=== PATIENT | male | born 1960 | race Caucasian/White ===

== ENCOUNTER 2020-04-07 11:27 | Emergency (ER) | payer SELFPAY ==
[2020-04-07 11:28] VITALS: BP 178/112; PULSE 89; RESP 18; TEMP 36.1; O2SAT 100; BMI 28.2
[2020-04-07 11:35] VITALS: BP 217/117; PULSE 90; RESP 13; O2SAT 99
[2020-04-07 11:46] LABS: Bedside Glucose 92 mg/dL (70-110)
--- NOTE | 2020-04-07 12:39 | CT_ITS ---
HISTORY: FACIAL NUMBNESS ADDITIONAL HISTORY: None provided. COMPARISON: None EXAMINATION/TECHNIQUE: CT Head or Brain W/O Contrast Injection. Axial, coronal and sagittal images. Number of images including paperwork: 238. A radiation dose optimization technique was used for this scan. FINDINGS: BRAIN: No acute hemorrhage or mass. No definite acute infarct; MRI more sensitive. White matter hypodensity is nonspecific but most commonly seen with chronic ischemic changes. Generalized atrophy. VENTRICULAR SYSTEM: No hydrocephalus. PARANASAL SINUSES AND MASTOIDS: No air-fluid level in the imaged extent. ORBITS: Unremarkable imaged extent. SKELETON AND SOFT TISSUES: Calvarium intact. ASPECTS score: Not applicable. CT/Brain/Head without Contrast IMPRESSION: No acute intracranial abnormality. Chronic involutional and white matter changes. Individualized dose optimization techniques were used for this CT. at 1336 Reported and signed by: Migdalia Pearson MD Electronically Signed: Migdalia Pearson MD at 13:36 EDT Tel , Service support ,
--- NOTE | 2020-04-07 12:39 | EKG12_ITS ---
Test Reason : Blood Pressure : / mmHG Vent. Rate : 066 BPM Atrial Rate : 066 BPM P-R Int : 142 ms QRS Dur : 092 ms QT Int : 404 ms P-R-T Axes : 052 020 047 degrees QTc Int : 423 ms Normal sinus rhythm Normal ECG Confirmed by DAMIAN GLEZ, CHET ([id number]), editor department BREANNA REYNA ([id number]) on 04/18/2020 9:32:08 A M Referred By: Confirmed By:MARII SALGADO MD
--- NOTE | 2020-04-07 12:51 | ED.DCSUM_ITS ---
History of Present Illness Chief Complaint: Neuro S/Sx Informant: Patient Onset: Weeks Context: Gradual Onset Timing: Continuous Narrative: Patient is a 59-year-old male with history of tobacco abuse but does not see a [facility] doctor regularly presenting with facial numbness as well as chest tightness. Patient states about 2 weeks ago he developed a headache and then had numb sensation from his left cheek up to his left forehead. He denies any associated vision changes. He does feel he has some slight swelling over his left lutheran. It then progressed a couple days ago to include the right upper side of his face. He states it seems at the whole top of his face from the ups of his numb. He also notes he has had some tingling and paresthesias in his left hand for the past 2 weeks. He states his legs feel normal. He notes also for the past couple weeks has had some tightness in his chest and neck which is been constant. He states that he is a smoker and has a chronic cough productive of sputum but this is unchanged from his baseline. He does note for the past year he has had some increased dyspnea on exertion especially [place] it. Patient states his face feels slightly flushed. He denies any vision changes. Denies any fever or chills. He does not think he has had any recent tick bites but cannot be sure given [place] the [place] a [place]. He denies any GI or symptoms. He notes he does have chronic back pain for which he takes 8 ibuprofen a day for. He does not have a primary care doctor. Dates he came in today because his sister was worried he might of had a stroke. He notes his father has a history of aneurysm and stroke. Past Medical History - Allergies and Home Meds Allergies/Adverse Reactions: Allergies onion Allergy (Verified 04/07/20 11:31) Other Penicillins [PCN] Allergy (Verified 04/07/20 11:31) Shortness of breath Primary Care Physician: [facility] [NON-STAFF] - Past Medical History: None Surgical History: noncontributory Lives: With Family Smoking Status: Current every day smoker Review of Systems General: Denies: Chills, Fever, Malaise, Sweats Eyes: Denies: Visual changes - bilaterally, Diplopia ENT: Denies: Bilateral ear pain, Rhinorrhea, Sore throat Cardiovascular: Reports: - - chest tightness . Denies: Chest pain, Palpitations Respiratory: Reports: Dyspnea, Cough, Sputum. Denies: Dyspnea on exertion Gastrointestinal: Denies: Abdominal pain, Nausea, Vomiting, Diarrhea, Melena, Hematochezia Genitourinary: Denies: Dysuria, Hematuria, Frequency Musculoskeletal: Denies: Back pain, Extremity Pain Skin: Denies: Rash, Wounds Neurological: Reports: Parasthesia - face, left arm . Denies: Headache, Weakness, Numbness Physical Exam Vital Signs/Narrative: Vital Signs Temp Pulse Resp BP Pulse Ox 04/07/20 11:28 97.0 F L 89 18 178/112 H 100 Inital Vital Signs reviewed: Yes General: Well nourished, Well developed, No Acute Distress Head: Normocephalic, Atraumatic Eyes: Perrl, EOMI ENT: Moist mucous membranes, No rhinorrhea, TM's clear, - - There is no tenderness to palpation over the temples. Neck: Supple, Nontender, No lymphadenopathy, No JVD Cardiovascular: Regular rate, Regular rhythm, No murmurs Respiratory: No distress, CTA bilaterally, Chest nontender. Negative for: Wheezing, Diminished, Decreased Air Movement Abdomen: Soft, Nontender, Nondistended, Normal bowel sounds Back: Nontender, Normal Inspection Extremities: Nontender, No edema Skin: Normal color, No rash Neurological: Alert, Oriented x3, Cranial nerves II-XII grossly intact, Normal Strength, Normal Sensation, Normal Gait. Negative for: Parasthesia, Weakness, Left side facial droop, Right side facial droop Psychological: Normal affect, Normal Mood Diagnostic/Tx/Re-eval Chest X-Ray - ED: 1 View, Read by ED Physician, Read by Radiologist, No Acute Disease Clinical Impression(s) from Imaging Studies Brain CT 04/07/20 12:39 IMPRESSION: No acute intracranial abnormality. Chronic involutional and white matter changes. Individualized dose optimization techniques were used for this CT. at 1336 Reported and signed by: Migdalia Pearson MD Electronically Signed: Migdalia Pearson MD at 13:36 EDT Tel , Service support , Chest X-Ray 04/07/20 13:00 IMPRESSION: No acute cardiopulmonary abnormality. at 1338 Reported and signed by: Migdalia Pearson MD Electronically Signed: Migdalia Pearson MD at 13:38 EDT Tel , Service support , Laboratory Data 04/07/20 04/07/20 04/07/20 11:40 12:36 12:36 WBC 4.9 RBC 4.78 Hgb 15.3 Hct 44.9 MCV 93.9 MCH 32.0 MCHC 34.1 RDW Std Deviation 44.8 H RDW Coeff of Marc 13.0 Plt Count 170 MPV 9.3 Immature Gran % (Auto) 0.400 Neut % (Auto) 59.9 Lymph % (Auto) 28.2 [place] % (Auto) 8.0 Eos % (Auto) 3.3 Baso % (Auto) 0.2 Absolute Neuts (auto) 2.9 Absolute Lymphs (auto) 1.38 Nucleated RBC % 0 ESR 12 PT 13.3 INR 1.1 Sodium Potassium Chloride Carbon Dioxide Anion Gap BUN Creatinine Estim Creat Clear Calc Est GFR (MDRD) Af Amer Est GFR (MDRD) Non-Af BUN/Creatinine Ratio Glucose Calcium Troponin I C-React Prot Ext Range B-Natriuretic Peptide POC Glucose 92 04/07/20 04/07/20 04/07/20 12:36 12:36 15:37 WBC RBC Hgb Hct MCV MCH MCHC RDW Std Deviation RDW Coeff of Marc Plt Count MPV Immature Gran % (Auto) Neut % (Auto) Lymph % (Auto) [place] % (Auto) Eos % (Auto) Baso % (Auto) Absolute Neuts (auto) Absolute Lymphs (auto) Nucleated RBC % ESR PT INR Sodium 138 Potassium 4.0 Chloride 109 H Carbon Dioxide 26.0 Anion Gap 3 L BUN 16 Creatinine 1.07 Estim Creat Clear Calc 82.97 Est GFR (MDRD) Af Amer 90 Est GFR (MDRD) Non-Af 75 BUN/Creatinine Ratio 15.0 Glucose 83 Calcium 8.6 Troponin I 0.074 H 0.078 H C-React Prot Ext Range < 2.90 B-Natriuretic Peptide 39.3 POC Glucose - Rhythm Strip Rhythm Strip: Sinus Rhythm Rate: 66 Ectopy: None - EKG Initial EKG Interpretation: Sinus Rhythm, - - Mehran rhythm at a rate of 66 Normal axis Normal intervals Normal ST segments Compared to prior EKG on 01/02/2015, no acute changes - Medical Decision Making Patient is evaluated for headache that been on for the past 2 weeks associated facial numbness and chest tightness. Patient does not see a doctor regularly does smoke cigarettes. On exam patient is well-appearing. He said no significant change in his symptoms today deal he came in because his sister insisted. Patient denies any focal neurologic deficits and while he does have paresthesias his sensation is intact to light touch. His NIH is 0. He is not have a facial droop. Because he is having some pain and swelling of his left lutheran I did add on a CRP and ESR for concern of temporal arteritis. These are normal. Head CT does not show any acute process. Given his shortness of breath and chest tightness I did check a troponin as well as an EKG. EKG does not show any acute ischemic changes however his troponin is elevated at 0.074. I did recommend admission to the patient however he states he cannot afford it. He states he is mora pay as he does not have insurance and he does not have any money. He is refusing admission at this time. He does consent to have a delta troponin performed. Repeat troponin is 0.078. Patient is still refusing admiss ion but at least his troponin is not increasing significantly. He is given aspirin and started on aspirin in the ER. [facility]. I did call and leave a voicemail with the clinic about my concern for this patient needing short follow-up. Patient is amenable to following up with the clinic. Patient does have capacity make this decision. He is counseled on the risk of , permanent disability or endorgan damage should he leave. He is given strict return precautions and also encouraged to return should he just change his mind. Patient left the hospital AGAINST MEDICAL ADVICE but in no acute distress. ED Disposition - Plan for ED Patient: Disposition: Against Medical Advice Diagnosis: Left against medical advice, Chest pain, Elevated troponin, Facial paresthesia Instructions: ED Chest Pain Atypical Unkn Cause, ED Paraesthesias Prescriptions: Aspirin 325 mg PO DAILY #28 tab Prescription Printed Referrals: Mercedez Mcdaniel [NON-STAFF] - Additional Instructions: The exact cause of your symptoms is not clear. However with your chest discomfort your troponin which is a marker for your heart is elevated showing that there is some signs of stress on your heart. That is why I was recommending admission today. Leaving there is a chance that you could have a major cardiac event or another process that could cause sudden , permanent disability or endorgan damage. Please call the clinic tomorrow to arrange short follow-up. Please return to the emergency room should you change your mind or have worsening symptoms. I do not know what is causing the numbness in your face either.
[2020-04-07 12:52] LABS: Erythrocyte Sedimentation Rate 12 mm/hr (0-20)
[2020-04-07 12:54] LABS: Absolute Lymphocyte Count 1.38 X10^3/uL (0.83-4.51); Absolute Neutrophil Count 2.9 X10^3/uL (2.0-7.7); Basophil# 0.01 X10^3/uL; Basophil% 0.2 % (0-1); Eosinophil# 0.16 X10^3/uL; Eosinophils% 3.3 % (0-5); Hematocrit 44.9 % (40-54); Hemoglobin 15.3 g/dL (13.0-16.5); Lymphocyte # 1.38 X10^3/ul (4.0); Lymphocyte % 28.2 % (19-41); Mean Corp Hgb Conc 34.1 g/dL (32-36); Mean Corpuscular Volume 93.9 fL (80-94); Mean Platelet Vol. 9.3 fl (6.2-12.0); Monocyte# 0.39 X10^3/uL; NRBC Flagged by Analyzer 0 % (0-5); Neutrophil # 2.93 X10^3/uL (2.7-7.7); Neutrophil % 59.9 % (47-70); Platelet Count 170 K/mm3 (150-450); RBC Distribution Width SD 44.8 fl (35.1-43.9); Red Blood Count 4.78 M/mm3 (4.6-6.2); White Blood Count 4.9 K/mm3 (4.4-11.0)
[2020-04-07 12:58] LABS: International Normalized Ratio 1.1; Prothrombin Time (Protime)PT. 13.3 SECONDS (11.7-14.9)
--- NOTE | 2020-04-07 13:00 | RAD_ITS ---
HISTORY: CHEST TIGHTNESS ADDITIONAL HISTORY: None provided. COMPARISON: 01/02/2015 EXAMINATION/TECHNIQUE: XR Chest 2 Views Number of images including paperwork: 2 FINDINGS: LUNGS AND PLEURA: No consolidation, mass or pleural effusion. CARDIAC SILHOUETTE: Unremarkable. MEDIASTINUM AND MARILYN: Aortic tortuosity. UPPER ABDOMEN: Unremarkable. SKELETON AND SOFT TISSUES: No acute findings. Degenerative changes. OTHER DEVICES AND HARDWARE: None. RAD/Chest PA and Lateral IMPRESSION: No acute cardiopulmonary abnormality. at 1338 Reported and signed by: Migdalia Pearson MD Electronically Signed: Migdalia Pearson MD at 13:38 EDT Tel , Service support ,
[2020-04-07 13:11] LABS: BNP,B-Type NATRIURETIC PEPTIDE 39.3 pg/mL (0-100)
[2020-04-07 13:15] LABS: Anion Gap 3 (5-15); BUN 16 mg/dL (7-18); CRP < 2.90 mg/L (0.0-3.0); Calcium,Total 8.6 mg/dL (8.5-10.1); Chloride 109 mmol/L (98-107); Creatinine, Serum 1.07 mg/dL (0.70-1.30); EST Glomerular Filtration Rate 75 mL/min (>60); Est Glom Filt Rate - Afr Amer 90 mL/min (>60); Estimated Creatinine Clearance 82.97 ml/min; Glucose 83 mg/dL (74-106); Sodium Level 138 mmol/L (136-145)
[2020-04-07 13:21] VITALS: BMI 28.2
[2020-04-07 16:00] VITALS: PULSE 57; RESP 18; O2SAT 97
[2020-04-07 17:50] VITALS: RESP 18
[2020-04-07] MEDS: Aspirin 325 MG Tablet PO (17:50)
== END 2020-04-07 17:50 | disposition left against medical advice (07) ==
PROVIDERS: Emergency Provider Emergency Medicine
DX: Z53.29 Procedure and treatment not carried out because of patient's decision for other reasons (principal); R07.9 Chest pain, unspecified; R79.89 Other specified abnormal findings of blood chemistry; R20.2 Paresthesia of skin; F17.200 Nicotine dependence, unspecified, uncomplicated
CPT/HCPCS: 70450; 71046; 80048; 82962; 83880; 84484; 85025; 85610; 85652; 86140; 93005; 99282; A4216